=== PATIENT | male | born 1980 | race Caucasian/White ===

== ENCOUNTER 2017-03-21 20:43 | Emergency (ER) | payer MEDICAID, OTHER, SELFPAY ==
[~2017-03-21] VITALS: Ht 177.8 cm; Wt 76.4 kg
[2017-03-21 23:29] LABS: MEAN CORPUSCULAR HEMOGLOBIN 31.8 pg (27.0-33.0); MEAN CORPUSCULAR HGB CONC 35.4 g/dl (32.0-36.5); WHITE BLOOD COUNT 10.1 K/mm3 (4.0-10.0)
[2017-03-21 23:42] LABS: INR 0.95
[2017-03-21 23:46] LABS: ANION GAP 4 MEQ/L (8-16); BLOOD UREA NITROGEN 14 MG/DL (7-18); CALCIUM LEVEL 9.9 MG/DL (8.5-10.1); CARBON DIOXIDE LEVEL 31 MEQ/L (21-32); CHLORIDE LEVEL 106 MEQ/L (98-107); CREATININE FOR GFR 0.82 MG/DL (0.70-1.30); GLOMERULAR FILTRATION RATE > 60.0 (>60); GLUCOSE, FASTING 92 MG/DL (70-105); POTASSIUM SERUM 4.2 MEQ/L (3.5-5.1); SODIUM LEVEL 141 MEQ/L (136-145)
--- NOTE | 2017-03-22 00:30 | REPUSA ---
MRA of the brain Clinical history: Blurred vision. Technique: Hemr-rq-efhfty MRA images of the brain were obtained without administration of contrast. 3 -D MIP images were also obtained. Findings: The vascular structures extending from the distal carotid and vertebrobasilar arterial syst ems, through the [place], demonstrate normal caliber and contour. There is no evidence of an eurysm, stenosis, or thrombosis. Impression: Unremarkable MRA examination of the brain.
--- NOTE | 2017-03-22 00:40 | REPUSA ---
MRI of the brain Clinical history: blurred vision. Technique: Multiecho multiplanar MRI images of the brain were obtained without administration of cont rast. Diffusion weighted images with ADC mapping was also obtained. Findings: The ventricles and sulci are symmetric bilaterally. The brain parenchyma demonstrates uniform and nor mal signal on all sequences. There is no midline shift, mass effect, or extra-axial fluid collection. The midline intracranial structures do not demonstrate any gross abnormalities. The cervical cranial junction is intact. The orbits are unremarkable. The visualized paranasal sinuses and mastoid air ce lls are clear. The osseous structures and superficial soft tissues are unremarkable. The vascular str uctures demonstrate appropriate flow voids. Impression: Normal MRI of the Brain.
[2017-03-22 00:45] VITALS: BP 134/89
== END 2017-03-22 00:50 | disposition home or self-care (01) ==
LOC: M ED 20:43
DX: H53.9 Unspecified visual disturbance (principal)

== ENCOUNTER 2017-05-21 20:00 | Emergency (ER) | payer OTHER, SELFPAY ==
[~2017-05-21] VITALS: Ht 177.8 cm; Wt 75.0 kg
[2017-05-21] MEDS ORDERED: GI COCKTAIL 50ML BTL(HYOSCYAMINE/MAALOX/LIDOCAINE VISCOUS)(1:3:1) PO ONE (22:00)
[2017-05-21 22:48] VITALS: BP 126/79
--- NOTE | 2017-05-22 14:31 | REP ---
Clinical: Pain. Technique: AP and lateral soft tissue neck radiographs. Findings: The nasopharyngeal, oral pharyngeal, and upper tracheal airway appears patent and midline. Surrounding soft tissues are unremarkable. No evidence for mass/mass effect. No subcutaneous emphysema. No foreign body. Osseous structures are normal. Impression: Normal soft tissue neck radiograph series Signed by Jayjay Jim MD 05/21/2017 10:47 P
--- NOTE | 2017-05-22 14:31 | REP ---
Clinical: Chest pain . Comparison: None . Technique: PA and lateral. Findings: The mediastinum and cardiac silhouette are normal. The lung draper are clear and without acute consolidation, effusion, or pneumothorax. The skeletal structures are intact and normal. Impression: 1. No acute cardiopulmonary process. Signed by Jayjay Jim MD 05/21/2017 10:45 P
== END 2017-05-21 22:49 | disposition home or self-care (01) ==
LOC: M ED 20:00
DX: J02.9 Acute pharyngitis, unspecified (principal); F17.210 Nicotine dependence, cigarettes, uncomplicated

== ENCOUNTER → 2018-06-10 | Outpatient (REF) | payer OTHER, MEDICAID ==
[2018-06-10 19:22] LABS: ALBUMIN 4.4 GM/DL (3.2-5.2); ALBUMIN/GLOBULIN RATIO 1.26 (1.00-1.93); ALKALINE PHOSPHATASE 86 U/L (45-117); ALT/SGPT 61 U/L (12-78); ANION GAP 7 MEQ/L (8-16); AST/SGOT 29 U/L (7-37); BILIRUBIN,DIRECT 0.2 MG/DL (0.0-0.2); BLOOD UREA NITROGEN 13 MG/DL (7-18); C REACTIVE PROTEIN QUANTITATIV < 0.30 MG/DL (0.00-0.30); CALCIUM LEVEL 9.4 MG/DL (8.5-10.1); CARBON DIOXIDE LEVEL 28 MEQ/L (21-32); CHLORIDE LEVEL 106 MEQ/L (98-107); CREATININE FOR GFR 0.86 MG/DL (0.70-1.30); GLOMERULAR FILTRATION RATE > 60.0 (>60); GLUCOSE, FASTING 91 MG/DL (70-100); HEMATOCRIT 49.3 % (42.0-52.0); HEMOGLOBIN 16.6 g/dl (13.5-17.5); LIPASE 126 U/L (73-393); MAGNESIUM LEVEL 2.2 MG/DL (1.8-2.4); MEAN CORPUSCULAR HEMOGLOBIN 30.3 pg (27.0-33.0); MEAN CORPUSCULAR HGB CONC 33.7 g/dl (32.0-36.5); MEAN CORPUSCULAR VOLUME 90.1 fl (80.0-96.0); PLATELET COUNT, AUTOMATED 188 10^3/uL (150-450); RED BLOOD COUNT 5.47 10^6/uL (4.30-6.10); RED CELL DISTRIBUTION WIDTH 11.9 % (11.5-14.5); SODIUM LEVEL 141 MEQ/L (136-145); TOTAL PROTEIN 7.9 GM/DL (6.4-8.2); WHITE BLOOD COUNT 7.4 10^3/uL (4.0-10.0)
[2018-06-10 19:28] LABS: TOTAL 25(OH) VITAMIN D 29.8 NG/ML (30.0-100.0)
== END ==
LOC: M LABDRAWC 16:33
DX: K44.9 Diaphragmatic hernia without obstruction or gangrene (principal); R10.12 Left upper quadrant pain; K21.9 Gastro-esophageal reflux disease without esophagitis; E55.9 Vitamin D deficiency, unspecified

== ENCOUNTER 2019-01-03 10:33 | Emergency (ER) | payer MEDICAID, OTHER ==
[~2019-01-03] VITALS: Ht 177.8 cm; Wt 79.5 kg
[2019-01-03] MEDS ORDERED: ALL10TAB28 (10:40)
[2019-01-03] MEDS ORDERED: FLUTISP (10:40)
[2019-01-03] MEDS ORDERED: ESOM40CA35 (10:40)
[2019-01-03 11:18] LABS: BASO % 0.3 % (0.0-1.0); EOS % 0.5 % (0.0-3.0); HEMATOCRIT 48.8 % (42.0-52.0); HEMOGLOBIN 17.3 g/dl (13.5-17.5); LYMPH # 2.3 10^3/uL (1.5-4.5); LYMPH % 28.8 % (24.0-44.0); MEAN CORPUSCULAR HEMOGLOBIN 31.1 pg (27.0-33.0); MEAN CORPUSCULAR HGB CONC 35.5 g/dl (32.0-36.5); MEAN CORPUSCULAR VOLUME 87.6 fl (80.0-96.0); MONO # 0.5 10^3/uL (0.0-0.8); MONO % 6.8 % (0.0-5.0); NEUTROPHILS % 63.2 % (36.0-66.0); PLATELET COUNT, AUTOMATED 175 10^3/uL (150-450); RED BLOOD COUNT 5.57 10^6/uL (4.30-6.10); WHITE BLOOD COUNT 7.9 10^3/uL (4.0-10.0)
--- NOTE | 2019-01-03 11:26 | REP ---
PA and lateral chest: Comparison is 2016. The lung draper are clear. The cardiac size is normal. The beth, mediastinum, and skeletal structures are unremarkable. Impression: Negative PA and lateral chest. There is no interval change. Electronically Signed by Lit Ingram MD 01/03/2019 11:18 A
[2019-01-03 11:35] LABS: INR 0.92; PROTHROMBIN TIME 12.5 SECONDS (12.1-14.4)
[2019-01-03 11:36] LABS: PARTIAL THROMBOPLASTIN TIME 27.9 SECONDS (25.4-37.6)
[2019-01-03 11:45] LABS: BLOOD UREA NITROGEN 16 MG/DL (7-18); CALCIUM LEVEL 9.2 MG/DL (8.5-10.1); CARBON DIOXIDE LEVEL 29 MEQ/L (21-32); CHLORIDE LEVEL 106 MEQ/L (98-107); CPK CREATINE PHOSPHOKINASE 127 U/L (39-308); CREATININE FOR GFR 0.98 MG/DL (0.70-1.30); GLOMERULAR FILTRATION RATE > 60.0 (>60); GLUCOSE, FASTING 78 MG/DL (70-100); MB/CK RELATIVE INDEX 1.02 (< OR =4); POTASSIUM SERUM 4.1 MEQ/L (3.5-5.1); SODIUM LEVEL 138 MEQ/L (136-145); TROPONIN I < 0.02 NG/ML (< 0.10)
[2019-01-03 12:07] VITALS: BP 119/81
--- NOTE | 2019-01-04 21:15 | ECGEPIP ---
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
== END 2019-01-03 12:12 | disposition home or self-care (01) ==
LOC: M ED 10:33
DX: I49.3 Ventricular premature depolarization (principal); K21.9 Gastro-esophageal reflux disease without esophagitis; K44.9 Diaphragmatic hernia without obstruction or gangrene; F41.0 Panic disorder [episodic paroxysmal anxiety]; Z79.899 Other long term (current) drug therapy; Z77.098 Contact with and (suspected) exposure to other hazardous, chiefly nonmedicinal, chemicals

== ENCOUNTER → 2019-01-25 | Outpatient (REF) | payer OTHER ==
[~2019-01-25] MED LIST: ALL10TAB28; ESOM40CA35; FLUTISP
== END ==
LOC: M SFHCCLAY 15:34
PROVIDERS: ATTEND Family Medicine
DX: Z53.9 Procedure and treatment not carried out, unspecified reason (principal); R06.00 Dyspnea, unspecified; R00.2 Palpitations; K21.0 Gastro-esophageal reflux disease with esophagitis; F41.9 Anxiety disorder, unspecified

== ENCOUNTER → 2019-02-01 | Outpatient (REF) | payer OTHER ==
[2019-02-08 00:07] LABS: 5HIAA 24HR URINE 3.2 mg/24 hr (0.0-14.9); 5HIAA TOTAL URINE 2.8 mg/L (Undefined)
== END ==
LOC: M SFHCPLAZ 19:42
PROVIDERS: ATTEND Family Medicine
DX: R06.00 Dyspnea, unspecified (principal); R00.2 Palpitations; F41.9 Anxiety disorder, unspecified

== ENCOUNTER → 2019-03-10 | Outpatient (CLI) | payer OTHER ==
[~2019-03-10] MED LIST changes: +ISOVUE-370 76% 100ML VIAL (Q9967) As Ordered ONE
--- NOTE | 2019-03-10 18:25 | REP ---
CT chest with IV contrast: History: Dyspnea. Comparison chest x-ray January 03, 2019. CT contrast dose: 75 ml of intravenous Isovue 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 The lung draper are clear. No pulmonary nodule or mass is seen. No infiltrate is noted. No pleural or pericardial effusion is seen. There is no evidence of hilar or mediastinal mass or adenopathy. Thyroid lobes appear symmetric as visualized. No filling defect is seen in the pulmonary arterial tree. The thoracic aorta is normal in caliber without evidence of aneurysm or dissection. No adrenal lesion is seen. The visualized upper abdominal structures are unremarkable. Bone window settings show no bony destructive lesion. Impression: Negative contrast enhanced chest CT. Electronically Signed by Garth Zayas MD 03/10/2019 07:57 P
== END ==
LOC: M RAD 16:39
PROVIDERS: ATTEND Physician Assistant
DX: R06.00 Dyspnea, unspecified (principal)
CPT/HCPCS: 71260; Q9967

== ENCOUNTER → 2022-01-27 | Outpatient (REF) | payer OTHER ==
[~2022-01-27] MED LIST changes: -ALL10TAB28; +CETI-24; -ISOVUE-370 76% 100ML VIAL (Q9967) As Ordered ONE
[2022-01-27 12:03] LABS: ALBUMIN 4.2 GM/DL (3.2-5.2); ALT/SGPT 38 U/L (12-78); BILIRUBIN,TOTAL 0.6 MG/DL (0.2-1.0); BLOOD UREA NITROGEN 10 MG/DL (7-18); CALCIUM LEVEL 9.4 MG/DL (8.5-10.1); CARBON DIOXIDE LEVEL 29 MEQ/L (21-32); CHLORIDE LEVEL 109 MEQ/L (98-107); CHOLESTEROL LEVEL 174 MG/DL (<200); CHOLESTEROL RISK RATIO 3.346 (<5); CREATININE FOR GFR 0.86 MG/DL (0.70-1.30); GLOMERULAR FILTRATION RATE > 60.0 (>60); GLUCOSE, FASTING 99 MG/DL (70-100); HDL CHOLESTEROL 52 MG/DL (>40); LDL CHOLESTEROL 114 MG/DL (<100); MAGNESIUM LEVEL 2.3 MG/DL (1.8-2.4); NON-HDL-C 122 MG/DL; POTASSIUM SERUM 4.7 MEQ/L (3.5-5.1); SODIUM LEVEL 141 MEQ/L (136-145); TOTAL PROTEIN 7.1 GM/DL (6.4-8.2); TRIGLYCERIDES LEVEL 40 MG/DL (<150)
[2022-01-27 12:08] LABS: BASO % 0.3 % (0.0-1.0); EOS # 0.1 10^3/uL (0.0-0.5); EOS % 1.4 % (0.0-3.0); HEMATOCRIT 47.3 % (42.0-52.0); HEMOGLOBIN 16.3 g/dl (13.5-17.5); LYMPH # 2.7 10^3/uL (1.5-5.0); LYMPH % 39.3 % (24.0-44.0); MEAN CORPUSCULAR HEMOGLOBIN 30.9 pg (27.0-33.0); MEAN CORPUSCULAR HGB CONC 34.5 g/dl (32.0-36.5); MEAN CORPUSCULAR VOLUME 89.6 fl (80.0-96.0); MONO # 0.7 10^3/uL (0.0-0.8); MONO % 9.5 % (2.0-8.0); NEUTROPHILS # 3.4 10^3/uL (1.5-8.5); NEUTROPHILS % 49.1 % (36.0-66.0); PLATELET COUNT, AUTOMATED 184 10^3/uL (150-450); RED BLOOD COUNT 5.28 10^6/uL (4.30-6.10); WHITE BLOOD COUNT 6.9 10^3/uL (4.0-10.0)
== END ==
LOC: M SFHCCLAY 07:38
PROVIDERS: ATTEND Family Medicine
DX: Z00.01 Encounter for general adult medical examination with abnormal findings (principal); R00.2 Palpitations; K21.9 Gastro-esophageal reflux disease without esophagitis; G43.009 Migraine without aura, not intractable, without status migrainosus; F41.9 Anxiety disorder, unspecified

== ENCOUNTER → 2022-12-15 | Outpatient (CLI) | payer OTHER | LOC: M SOG 11:11 | PROVIDERS: ATTEND Physician Assistant | DX: S92.35 Fracture of fifth metatarsal bone (principal) ==

== ENCOUNTER → 2023-01-12 | Outpatient (CLI) | payer OTHER ==
[~2023-01-12] MED LIST changes: +FLUT50SP17; -FLUTISP
== END ==
LOC: M SOG 10:51
PROVIDERS: ATTEND Physician Assistant
DX: S92.355D Nondisplaced fracture of fifth metatarsal bone, left foot, subsequent encounter for fracture with routine healing (principal)

== ENCOUNTER 2023-03-20 16:36 | Emergency (ER) | payer OTHER ==
[~2023-03-20] VITALS: Ht 177.8 cm; Wt 79.2 kg
[2023-03-20 16:37] VITALS: BP 135/76; TEMP 97.9; O2SAT 97
[2023-03-20] MEDS ORDERED: OMEP40CA4 PO (16:49)
[2023-03-20] MEDS ORDERED: NOXI1TAB PO (16:49)
[2023-03-20] MEDS ORDERED: MAALOX 30 ML SUSP *UDC PO ONE (17:35)
[2023-03-20] MEDS ORDERED: HYOSCYAMINE SULFATE 0.125 MG SUBL TABLET SL ONE (17:35)
[2023-03-20] MEDS ORDERED: OMEP40CA5 PO (18:03)
[2023-03-20] MEDS ORDERED: SUCR1SS PO (18:03)
== END 2023-03-20 18:10 | disposition home or self-care (01) ==
LOC: M ED 16:36
DX: G89.18 Other acute postprocedural pain (principal); F41.9 Anxiety disorder, unspecified; K21.9 Gastro-esophageal reflux disease without esophagitis; F17.290 Nicotine dependence, other tobacco product, uncomplicated; Z79.899 Other long term (current) drug therapy

== ENCOUNTER → 2023-05-22 | Outpatient (REF) | payer OTHER ==
[~2023-05-22] MED LIST changes: +NOXI1TAB PO; +OMEP40CA4 PO; +OMEP40CA5 PO; +SUCR1SS PO
[2023-05-22 18:13] LABS: BASO % 0.3 % (0.0-1.0); EOS % 0.3 % (0.0-3.0); HEMATOCRIT 46.6 % (42.0-52.0); LYMPH # 1.9 10^3/uL (1.5-5.0); LYMPH % 20.8 % (24.0-44.0); MEAN CORPUSCULAR HEMOGLOBIN 30.7 pg (27.0-33.0); MEAN CORPUSCULAR HGB CONC 34.3 g/dl (32.0-36.5); MEAN CORPUSCULAR VOLUME 89.3 fl (80.0-96.0); MONO # 0.6 10^3/uL (0.0-0.8); MONO % 6.4 % (2.0-8.0); NEUTROPHILS # 6.6 10^3/uL (1.5-8.5); NEUTROPHILS % 71.9 % (36.0-66.0); PLATELET COUNT, AUTOMATED 191 10^3/uL (150-450); RED BLOOD COUNT 5.22 10^6/uL (4.30-6.10); WHITE BLOOD COUNT 9.1 10^3/uL (4.0-10.0)
[2023-05-22 18:39] LABS: ALBUMIN 4.3 G/DL (3.2-5.2); ALKALINE PHOSPHATASE 74 U/L (46-116); ALT/SGPT 32 U/L (7.0-40); AST/SGOT 17 U/L (<34); BILIRUBIN,TOTAL 1.2 MG/DL (0.3-1.2); BLOOD UREA NITROGEN 9 MG/DL (9-23); CALCIUM LEVEL 9.2 MG/DL (8.5-10.1); CARBON DIOXIDE LEVEL 27 MMOL/L (20-31); CHLORIDE LEVEL 104 MMOL/L (98-107); CHOLESTEROL LEVEL 202 MG/DL (<200); CHOLESTEROL RISK RATIO 4.32 (<5); CREATININE FOR GFR 0.75 MG/DL (0.70-1.30); FREE T4 1.27 NG/DL (0.89-1.76); GLOMERULAR FILTRATION RATE > 60.0 (>60); GLUCOSE, FASTING 83 MG/DL (60-100); HDL CHOLESTEROL 46.7 MG/DL (>40); LDL CHOLESTEROL 132.9 MG/DL (<100); MAGNESIUM LEVEL 1.8 MG/DL (1.8-2.4); NON-HDL-C 155.3 MG/DL; POTASSIUM SERUM 4.1 MMOL/L (3.5-5.1); SODIUM LEVEL 140 MMOL/L (136-145); THYROID STIMULATING HORMONE 1.029 uIU/ML (0.55-4.78); TOTAL PROTEIN 7.3 G/DL (5.7-8.2); TRIGLYCERIDES LEVEL 112 MG/DL (<150)
== END ==
LOC: M SFHCCLAY 12:02
PROVIDERS: ATTEND Family Medicine
DX: Z00.01 Encounter for general adult medical examination with abnormal findings (principal); R13.12 Dysphagia, oropharyngeal phase; G43.109 Migraine with aura, not intractable, without status migrainosus; K21.9 Gastro-esophageal reflux disease without esophagitis; R00.2 Palpitations; F41.9 Anxiety disorder, unspecified

== ENCOUNTER → 2024-05-10 | Outpatient (CLI) | payer OTHER ==
[~2024-05-10] MED LIST changes: +E-Z-GAS II EFFERVESCENT PACKET (SODIUM BICARB./CITRIC ACID/SIMETHICONE) As Ordered ONE; +E-Z-HD 98% w/w 340GM SUSP BTL As Ordered ONE; +E-Z-PAQUE 96% w/w SUSP 176GM BTL As Ordered ONE; -FLUT50SP17; +FLUTISP
== END ==
LOC: M RAD 08:37
PROVIDERS: ATTEND Family Medicine
DX: R13.12 Dysphagia, oropharyngeal phase (principal); K21.9 Gastro-esophageal reflux disease without esophagitis

== ENCOUNTER 2024-09-06 19:34 | Emergency (ER) | payer OTHER ==
[~2024-09-06] VITALS: Ht 177.8 cm; Wt 77.7 kg
[~2024-09-06 19:34] MED LIST changes: -E-Z-GAS II EFFERVESCENT PACKET (SODIUM BICARB./CITRIC ACID/SIMETHICONE) As Ordered ONE; -E-Z-HD 98% w/w 340GM SUSP BTL As Ordered ONE; -E-Z-PAQUE 96% w/w SUSP 176GM BTL As Ordered ONE
[2024-09-06] MEDS ORDERED: ESOM1CAP20 PO (19:44)
[2024-09-06 21:49] LABS: BASO % 0.3 % (0.0-1.0); EOS # 0.1 10^3/uL (0.0-0.5); EOS % 0.9 % (0.0-3.0); HEMATOCRIT 44.8 % (42.0-52.0); HEMOGLOBIN 15.9 g/dl (13.5-17.5); LYMPH % 33.7 % (24.0-44.0); MEAN CORPUSCULAR HGB CONC 35.5 g/dl (32.0-36.5); MEAN CORPUSCULAR VOLUME 87.3 fl (80.0-96.0); MONO # 0.7 10^3/uL (0.0-0.8); MONO % 7.6 % (2.0-8.0); NEUTROPHILS % 57.2 % (36.0-66.0); PLATELET COUNT, AUTOMATED 182 10^3/uL (150-450); RED BLOOD COUNT 5.13 10^6/uL (4.30-6.10); WHITE BLOOD COUNT 8.8 10^3/uL (4.0-10.0)
[2024-09-06 22:02] LABS: INR 0.94; PROTHROMBIN TIME 12.9 SECONDS (12.5-14.5)
[2024-09-06 22:14] LABS: LIPASE 30 U/L (12-53)
[2024-09-06 22:17] LABS: ALKALINE PHOSPHATASE 77 U/L (40-129); ALT/SGPT 22 U/L (7.0-40); AST/SGOT 15 U/L (<34); BILIRUBIN,DIRECT 0.3 MG/DL (<0.4); BILIRUBIN,TOTAL 1.1 MG/DL (0.3-1.2); BLOOD UREA NITROGEN 8 MG/DL (9-23); CALCIUM LEVEL 9.6 MG/DL (8.5-10.1); CARBON DIOXIDE LEVEL 28 MMOL/L (20-31); CHLORIDE LEVEL 106 MMOL/L (98-107); CK-MB VALUE MASS < 1.0 NG/ML (<3.6); CPK CREATINE PHOSPHOKINASE 105 U/L (46-171); CREATININE FOR GFR 0.81 MG/DL (0.70-1.30); GLOMERULAR FILTRATION RATE > 60.0 (>60); GLUCOSE, FASTING 91 MG/DL (60-100); MB/CK RELATIVE INDEX 0.95 (< OR =4); SODIUM LEVEL 140 MMOL/L (136-145); TOTAL PROTEIN 7.4 G/DL (5.7-8.2)
[2024-09-07 05:24] LABS: THYROID STIMULATING HORMONE 1.402 uIU/ML (0.55-4.78)
[2024-09-07 08:52] VITALS: BP 129/71; TEMP 98; O2SAT 99
== END 2024-09-07 08:57 | disposition home or self-care (01) ==
LOC: M ED 19:34
DX: R07.89 Other chest pain (principal); M25.78 Osteophyte, vertebrae; M50.30 Other cervical disc degeneration, unspecified cervical region; K21.9 Gastro-esophageal reflux disease without esophagitis; F41.9 Anxiety disorder, unspecified

== ENCOUNTER → 2024-09-26 | Outpatient (REF) | payer OTHER ==
[~2024-09-26] MED LIST changes: +ESOM1CAP20 PO
[2024-09-26 18:55] LABS: C REACTIVE PROTEIN QUANTITATIV < 0.50 MG/DL (<1.0)
[2024-09-26 18:56] LABS: THYROID STIMULATING HORMONE 0.981 uIU/ML (0.55-4.78)
[2024-09-26 18:57] LABS: VITAMIN B12 LEVEL 1002 PG/ML (211-911)
[2024-09-29 12:57] LABS: ANA SCREEN, IFA POSITIVE (NEGATIVE)
[2024-09-30 15:02] LABS: Methylmalonic Acid 109 nmol/L (55-335)
[2024-09-30 16:37] LABS: LYME TOTAL ANTIBODY CIA <= 0.90 Index (<=0.90)
== END ==
LOC: M SFHCCLAY 12:04
PROVIDERS: ATTEND Physician Assistant
DX: M79.18 Myalgia, other site (principal)

== ENCOUNTER → 2024-10-18 | Outpatient (REF) | payer OTHER ==
[2024-10-18 15:02] LABS: BASO % 0.4 % (0.0-1.0); EOS % 0.3 % (0.0-3.0); HEMATOCRIT 48.7 % (42.0-52.0); HEMOGLOBIN 16.9 g/dl (13.5-17.5); LYMPH # 1.7 10^3/uL (1.5-5.0); LYMPH % 24.9 % (24.0-44.0); MEAN CORPUSCULAR HEMOGLOBIN 30.3 pg (27.0-33.0); MEAN CORPUSCULAR HGB CONC 34.7 g/dl (32.0-36.5); MEAN CORPUSCULAR VOLUME 87.4 fl (80.0-96.0); MONO # 0.5 10^3/uL (0.0-0.8); MONO % 6.6 % (2.0-8.0); NEUTROPHILS # 4.6 10^3/uL (1.5-8.5); NEUTROPHILS % 67.4 % (36.0-66.0); PLATELET COUNT, AUTOMATED 194 10^3/uL (150-450); RED BLOOD COUNT 5.57 10^6/uL (4.30-6.10); WHITE BLOOD COUNT 6.8 10^3/uL (4.0-10.0)
[2024-10-18 15:31] LABS: URIC ACID 5.4 MG/DL (3.7-9.2)
[2024-10-18 15:34] LABS: ALBUMIN 4.5 G/DL (3.2-5.2); ALKALINE PHOSPHATASE 82 U/L (40-129); ALT/SGPT 35 U/L (7.0-40); AST/SGOT 17 U/L (<34); BILIRUBIN,TOTAL 1.1 MG/DL (0.3-1.2); BLOOD UREA NITROGEN 10 MG/DL (9-23); CALCIUM LEVEL 9.6 MG/DL (8.5-10.1); CARBON DIOXIDE LEVEL 30 MMOL/L (20-31); CHLORIDE LEVEL 100 MMOL/L (98-107); GLOMERULAR FILTRATION RATE > 60.0 (>60); GLUCOSE, FASTING 76 MG/DL (60-100); POTASSIUM SERUM 4.5 MMOL/L (3.5-5.1); RHEUMATOID FACTOR QUANT < 3.5 IU/ML (<14); SODIUM LEVEL 141 MMOL/L (136-145); TOTAL 25(OH) VITAMIN D 41.5 NG/ML (20.0-100.0)
[2024-10-19 14:17] LABS: CYCLIC CITRULLINATED PEPTIDE < 16 UNITS (<20)
== END ==
LOC: M SFHCCLAY 10:51
PROVIDERS: ATTEND Physician Assistant
DX: R76.8 Other specified abnormal immunological findings in serum (principal)

== ENCOUNTER 2024-10-24 10:32 | Emergency (ER) | payer OTHER ==
[~2024-10-24] VITALS: Ht 175.3 cm; Wt 77.1 kg
[2024-10-24 10:39] VITALS: BP 132/84; TEMP 97.2; O2SAT 99
[2024-10-24] MEDS: KETOROLAC 30 MG/ML 1ML VIAL IV ONE (14:56)
[2024-10-24] MEDS: METHOCARBAMOL 1,000 MG/10 ML VIAL IV ONE (14:56)
[2024-10-24] MEDS ORDERED: METH-1164 PO (15:44)
== END 2024-10-24 16:03 | disposition home or self-care (01) ==
LOC: M ED 10:32
DX: M79.10 Myalgia, unspecified site (principal); K21.9 Gastro-esophageal reflux disease without esophagitis; F41.9 Anxiety disorder, unspecified; F17.290 Nicotine dependence, other tobacco product, uncomplicated
CPT/HCPCS: 96374; 96375; 99284; J1885; J2800

== ENCOUNTER → 2024-10-26 | Outpatient (REF) | payer OTHER ==
[~2024-10-26] MED LIST changes: +METH-1164 PO
[2024-10-26 19:16] LABS: FOLATE > 24.0 NG/ML (>5.4)
[2024-10-26 19:17] LABS: THYROID STIMULATING HORMONE 1.057 uIU/ML (0.55-4.78)
[2024-10-26 19:25] LABS: VITAMIN B12 LEVEL 624 PG/ML (211-911)
[2024-10-26 19:49] LABS: HEMOGLOBIN A1c 4.8 % (4.0-6.0)
[2024-10-26 22:14] LABS: RHEUMATOID FACTOR QUANT < 3.5 IU/ML (<14)
== END ==
LOC: M LABDRAWC 16:38
PROVIDERS: ATTEND Psychiatry & Neurology Neurology
DX: E53.8 Deficiency of other specified B group vitamins (principal); G62.9 Polyneuropathy, unspecified